=== PATIENT | female | born 1975 | race Caucasian/White ===

== ENCOUNTER 2021-11-06 19:18 | Emergency (ER) | payer OTHER ==
[2021-11-06] MEDS ORDERED: CYCLOBENZAPRINE10 MG PO (20:51)
[2021-11-06] MEDS ORDERED: MEDROL 4MG DOSEP4 MG PO (20:51)
== END 2021-11-06 21:00 | disposition home or self-care (01) ==
LOC: FER 19:18
DX: S13.4XXA Sprain of ligaments of cervical spine, initial encounter (principal); S23.3XXA Sprain of ligaments of thoracic spine, initial encounter; S33.5XXA Sprain of ligaments of lumbar spine, initial encounter; V89.2XXA Person injured in unspecified motor-vehicle accident, traffic, initial encounter
CPT/HCPCS: 70450; 72125; 72128; 72131